=== PATIENT | male | born 1960 | race Caucasian/White ===

== ENCOUNTER → 2017-06-10 | Outpatient (CLI) | payer BC | END | disposition home or self-care (01) | LOC: PCVCIMAG 16:52 | DX: I08.1 Rheumatic disorders of both mitral and tricuspid valves (principal); I10 Essential (primary) hypertension; I48.91 Unspecified atrial fibrillation; E78.5 Hyperlipidemia, unspecified; I42.9 Cardiomyopathy, unspecified | CPT/HCPCS: 76770; 93306; 93975 ==

== ENCOUNTER 2017-07-14 08:42 | Outpatient (CLI) | payer BC ==
[2017-07-14] MEDS ORDERED: IV NORMAL SALINE 1000ML BAG 1,000 ML (08:56)
[2017-07-14] MEDS ORDERED: MIDAZOLAM HCL/PF 2 MG/2 ML VIAL. (09:05)
[2017-07-14] MEDS ORDERED: BENZOCAINE ONE 20% MUCOSAL SPRAY. (09:06)
[2017-07-14] MEDS ORDERED: fentaNYL PF VIAL 100 MCG/2 ML VIAL (09:06)
[2017-07-24] MEDS ORDERED: IV NORMAL SALINE 500ML BAG 500 ML (08:54)
[2017-07-24] MEDS ORDERED: MIDAZOLAM HCL/PF 2 MG/2 ML VIAL. ×2 (08:55→11:04)
[2017-07-24] MEDS ORDERED: fentaNYL PF VIAL 100 MCG/2 ML VIAL ×2 (08:55→11:04)
[2017-07-24] MEDS ORDERED: BENZOCAINE ONE 20% MUCOSAL SPRAY. (09:02)
== END 2017-07-24 | disposition home or self-care (01) ==
LOC: PCVCINTER 08:42
DX: I48.91 Unspecified atrial fibrillation (principal); I08.1 Rheumatic disorders of both mitral and tricuspid valves
CPT/HCPCS: 92960; 93312; 93325; 99152; 99153; J2250; J3010; J7030; J7040

== ENCOUNTER → 2018-03-23 | Outpatient (CLI) | payer BC ==
--- NOTE | 2018-03-23 12:50 | PCVCIMAG ---
APPROVED REPORT Study performed: 03/23/2018 07:58:01 EXAM: Comprehensive 2D, Doppler, and color-flow Echocardiogram Patient Location: Echo lab Status: routine BSA: 2.04 HR: 62 bpmBP: 136/78 mmHg Rhythm: NSR Other Information Study Quality: Adequate Risk Factors: Cardiac Risk Factors: HTN Indications Cardiomyopathy parox A fib 2D Dimensions IVSd: 11.05 (7-11mm) LVDd: 49.09 mm PWd: 11.34 (7-11mm)Ascending Ao: 33.97 (22-36mm) LVDs: 36.47 (25-40mm) Left Atrium: 42.42 (27-40mm) Aortic Root: 30.50 mm LV Single Plane 4CH: 60.53 % LV Single Plane 2CH: 67.46 % Biplane EF: 63.8 % Volumes Left Atrial Volume (Systole) Single Plane 4CH: 65.32 mLSingle Plane 2CH: 71.97 mL LA ESV Index: 34.00 mL/m2 Aortic Valve AoV Peak Dustin.: 1.63 m/s AO Peak Gr.: 10.68 mmHgLVOT Max P.02 mmHg LVOT Max V: 1.12 m/s Mitral Valve E/A Ratio: 1.8 MV Decel. Time: 233.88 ms MV E Max Dustin.: 0.72 m/s MV A Dustin.: 0.40 m/s IVRT: 79.58 ms Pulmonary Valve PV Peak Dustin.: 1.01 m/sPV Peak Gr.: 4.12 mmHg Pulmonary Vein P Vein S: 0.30 m/sP Vein A: 0.28 m/s P Vein D: 0.54 m/sP Vein A Dur.: 124.6 msec P Vein S/D Ratio: 0.56 Tricuspid Valve TR Peak Dustin.: 2.66 m/s TR Peak Gr.: 28.26 mmHg Left Ventricle The left ventricle is normal size. There is normal LV segmental wall motion. There is normal left ventricular wall thickness. The left ventricular systolic function is normal. The left ventricular ejection fraction is within the normal range. LVEF is 55%. Grade II - pseudonormal filling dynamics. Right Ventricle The right ventricle is normal size. The right ventricular systolic function is normal. Atria Left atrium is at the upper limits of normal. Right atrium is at the upper limits of normal. Aortic Valve The aortic valve is normal in structure. No aortic regurgitation is present. There is no aortic valvular stenosis. Mitral Valve The mitral valve is normal in structure. There is no mitral valve regurgitation noted. No evidence of mitral valve stenosis. Tricuspid Valve The tricuspid valve is normal in structure. Mild tricuspid regurgitation with PAP of 35 mmHg. Pulmonic Valve The pulmonary valve is normal in structure. There is no pulmonic valvular regurgitation. Great Vessels The aortic root is normal in size. IVC is normal in size and collapses >50% with inspiration. Pericardium There is no pericardial effusion. There is no pleural effusion. <Conclusion> The left ventricle is normal size. LVEF is 55%. Grade II - pseudonormal filling dynamics. The right ventricle is normal size. Left atrium is at the upper limits of normal. Right atrium is at the upper limits of normal. The aortic valve is normal in structure. There is no mitral valve regurgitation noted. Mild tricuspid regurgitation with PAP of 35 mmHg. The aortic root is normal in size. There is no pericardial effusion.
== END | disposition home or self-care (01) ==
LOC: PCVCIMAG 08:17
PROVIDERS: ATTEND Internal Medicine Cardiovascular Disease
DX: I07.1 Rheumatic tricuspid insufficiency (principal); I48.0 Paroxysmal atrial fibrillation; I42.9 Cardiomyopathy, unspecified; I10 Essential (primary) hypertension; E78.5 Hyperlipidemia, unspecified
CPT/HCPCS: 93306